=== PATIENT | female | born 1990 | race Asian ===

== ENCOUNTER 2021-08-30 19:16 | Emergency (ER) | payer BC ==
[2021-08-30] MEDS ORDERED: Boostrix 0.5 ML (Tdap) VIAL ONE (19:48)
[2021-08-30] MEDS ORDERED: Lidocaine 1% w/Epinephrine 1:100K 20 ML VIAL ONE (19:48)
== END 2021-08-30 20:16 | disposition home or self-care (01) ==
LOC: CSHERS 19:16
DX: S61.210A Laceration without foreign body of right index finger without damage to nail, initial encounter (principal); W26.8XXA Contact with other sharp object(s), not elsewhere classified, initial encounter; Z23 Encounter for immunization
CPT/HCPCS: 12001; 90471; 90715